=== PATIENT | female | born 1960 | race Caucasian/White ===

== ENCOUNTER 2022-09-23 19:47 | Emergency (ER) | payer BC, SELFPAY ==
[2022-09-23 19:48] VITALS: BP 113/85; PULSE 100; RESP 16; TEMP 36.3; O2SAT 100; BMI 21.5
--- NOTE | 2022-09-23 20:11 | EDS_ITS ---
HPI History of Present Illness Chief Complaint: Abd Pain Detail of Chief Complaint: Abdominal pain, vomiting Informant: patient Narrative Narrative: Patient presents secondary to abdominal pain and vomiting. She is a history of Crohn's disease and has had prior bowel obstruction. She states she gets intermittent abdominal pain with vomiting. She lives in the [facility] but was here visiting her brother when symptoms started tonight. She is had vomiting for the last hour and a half. She took 2 Zofran without improvement in her symptoms. Patient does state that on a CT scan in July her pancreatic duct was noted to be dilated to 8 mm. She scheduled to see a specialist at [facility] on Sunday. [facility] Medical History Crohn disease Pancreatic duct dilated SBO (small bowel obstruction) Allergy/AdvReac Type Severity Reaction Status Date / Time sulfamethoxazole Allergy Hives Verified 09/23/22 19:48 [From Bactrim] trimethoprim [From Bactrim] Allergy Hives Verified 09/23/22 19:48 Social History Smoking Status: Former smoker ROS ROS ED Constitutional Constitutional ED: Denies chills or fever(s) Eyes Eyes: Denies change in vision or discharge from eye(s) ENT ENT ED: Denies discharge from eye(s), rhinorrhea or sore throat Cardiovascular Cardiovascular: Denies chest pain or palpitations Respiratory/Chest Respiratory/Chest: Denies cough or dyspnea Gastrointestinal Gastrointestinal: Reports abdominal pain, nausea and vomiting; Denies diarrhea Genitourinary Genitourinary ED: Denies dysuria Musculoskeletal Musculoskeletal: Denies back pain or extremity pain Integumentary Denies Abrasions or rash Neurologic Neurologic: Denies headache(s) or weakness Psychiatric Psychiatric: Denies anxiety or depression Allergic/Immunologic Allergic/Immunologic ED: Denies lip swelling or urticaria EXAM Physical Exam Const Vital Signs: 09/23/22 19:48 Temperature 97.3 F L Temperature Source Temporal Pulse Rate 100 Respiratory Rate 16 Blood Pressure 113/85 H Blood Pressure Mean 94 Pulse Ox 100 Positive well nourished and well developed General Appearance ED: well developed HEENT Reports normocephalic and head/scalp atraumatic Eyes PERRL and EOMs intact bilaterally Neck supple Chest Wall inspection of chest normal and palpation of chest normal Resp normal respiratory effort and clear to auscultation bilaterally Cardio regular rate and regular rhythm GI GI Narrative: Abdomen soft with very hypoactive bowel sounds. No guarding or rebound at this time. Palpation: soft Extremity normal to inspection Neuro oriented x3 and no sensory deficits noted Sensorium / Orientation: alert Motor Exam: strength 5/5 throughout Psych mental status grossly normal Skin no rashes or lesions noted MDM MDM MDM Narrative Medical decision making narrative: Patient had Zofran at home without improvement in her nausea. She is given Phenergan here along with a dose of morphine and IV fluids. Labwork obtained to evaluate for leukocytosis, anemia, and electrolyte derangement. CT scan of the abdomen pelvis with IV contrast obtained given patient's prior surgical history and bowel obstructions. Lab Data Attestation: I reviewed the patient's lab results. Labs: Laboratory Results - last 24 hr 09/23/22 09/23/22 20:20 20:20 WBC 14.0 H RBC 4.69 Hgb 13.9 Hct 42.4 MCV 90.4 MCH 29.6 MCHC 32.8 RDW Std Deviation 44.3 H RDW Coeff of Patti 13.3 Plt Count 215 MPV 11.4 Immature Gran % (Auto) 0.400 Neut % (Auto) 89.6 H Lymph % (Auto) 6.9 L [place] % (Auto) 2.4 Eos % (Auto) 0.3 Baso % (Auto) 0.4 Absolute Neuts (auto) 12.6 H Absolute Lymphs (auto) 0.96 Nucleated RBC % 0 Sodium 140 Potassium 3.9 Chloride 107 Carbon Dioxide 27.0 Anion Gap 6 BUN 16 Creatinine 0.90 Estim Creat Clear Calc 59.81 Est GFR (MDRD) Af Amer 82 Est GFR (MDRD) Non-Af 68 BUN/Creatinine Ratio 17.8 Glucose 134 H Calcium 9.7 Total Bilirubin 0.40 Direct Bilirubin 0.12 AST 20 ALT 25 Alkaline Phosphatase 59 Total Protein 7.3 Albumin 3.6 Globulin 3.7 Lipase 26 Radiography Diagnostic Testing: Clinical Impression(s) from Imaging Studies Abdomen/Pelvis CT 09/23/22 21:00 IMPRESSION: Small bowel obstruction with transition point at right mid abdominal anastomosis. Small hiatal hernia with fluid in somewhat patulous distal esophagus raising concern for aspiration risk. Electronically Signed: Kulwinder Wiggins MD at 21:56 EDT , Treatment and Re-Evaluation :: CBC was a white count of 14.0 with 89% neutrophils. Hemoglobin normal at 13.9. Chemistry studies unremarkable. LFTs are normal. Glucose is 134. CT scan of the abdomen pelvis with IV contrast reveals a small bowel obstruction with transition point at the right mid abdominal anastomosis. She is a small hiatal hernia with fluid raising concern for aspiration risk. Test results are discussed with the patient and her family at bedside. She would like to go back to [facility] where her physicians are located. We spoke with the transfer line at [place]. They state that they will take her in transfer but she will currently be on a wait list for a bed. Patient is asking for something to drink. I advised her that we could not let her taking thing by mouth at this time and we discussed potential NG tube placement. She has not had any further vomiting here and states that she has never had to have an NG tube with her prior bowel obstructions. Given that she is not vomiting this time we will hold off at this time Discharge Plan Triage Chief Complaint: Abd Pain ED Provider: Sonya Pina Dx/Rx/DC Orders Clinical Impression: Small bowel obstruction Primary Care Provider: YODIT BHARDWAJ Referrals: NOT,DEFINED [Non-Staff] - Disposition Disposition: Acute Care Hospital Discharge Location: [facility]
[2022-09-23] MEDS: proMETHazine 25 MG/ML Syringe 12.5 MG IM (20:22)
[2022-09-23] MEDS: 0.9% Normal Saline 1,000 ML 150 ML IV (20:22)
[2022-09-23] MEDS: Morphine 4 MG/ML Syringe IV (20:22)
[2022-09-23 20:26] LABS: Absolute Lymphocyte Count 0.96 X10^3/uL (0.83-4.51); Absolute Neutrophil Count 12.6 X10^3/uL (2.0-7.7); Basophil# 0.05 X10^3/uL; Basophil% 0.4 % (0-1); Eosinophil# 0.04 X10^3/uL; Eosinophils% 0.3 % (0-5); Hematocrit 42.4 % (37-47); Hemoglobin 13.9 g/dL (12.0-15.0); Lymphocyte # 0.96 X10^3/ul (0.83-4.51); Lymphocyte % 6.9 % (19-41); Mean Corp Hgb Conc 32.8 g/dL (32-36); Mean Corpuscular Hgb 29.6 pg (27.0-32.0); Mean Corpuscular Volume 90.4 fL (81-99); Mean Platelet Vol. 11.4 fl (6.2-12.0); Monocyte# 0.34 X10^3/uL; Monocyte% 2.4 % (0-10); NRBC Flagged by Analyzer 0 % (0-5); Neutrophil # 12.57 X10^3/uL (2.7-7.7); Neutrophil % 89.6 % (47-70); Platelet Count 215 K/mm3 (150-450); RBC Distribution Width CV 13.3 % (11.6-14.6); RBC Distribution Width SD 44.3 fl (35.1-43.9); Red Blood Count 4.69 M/mm3 (4.2-5.4)
[2022-09-23 20:41] LABS: AST(SGOT) 20 U/L (15-37); Alanine Aminotransfer ALT/SGPT 25 U/L (13-56); Albumin, Serum 3.6 g/dL (3.2-5.0); Alkaline Phosphatase 59 U/L (45-117); Anion Gap 6 (5-15); BUN 16 mg/dL (7-18); BUN/Creat Ratio 17.8 RATIO (10-20); Bilirubin, Direct 0.12 mg/dL (0.00-0.30); Calcium,Total 9.7 mg/dL (8.5-10.1); Chloride 107 mmol/L (98-107); EST Glomerular Filtration Rate 68 mL/min (>60); Est Glom Filt Rate - Afr Amer 82 mL/min (>60); Estimated Creatinine Clearance 59.81 ml/min; Globulin 3.7 g/dL (2.2-4.2); Glucose 134 mg/dL (74-106); Lipase 26 U/L (13-75); Potassium 3.9 mmol/L (3.5-5.1); Protein, Total 7.3 g/dL (6.4-8.2); Sodium Level 140 mmol/L (136-145)
--- NOTE | 2022-09-23 21:00 | CT_ITS ---
We are attempting to reach an attending provider to discuss findings. An addendum with communication details will be sent when the communication is complete. INDICATION: ABD PAIN/NAUSEA A radiation dose optimization technique was used for this scan. Radiation CTDIvol 12.20 Radiation DLP 407.46 COMPARISON: None. IV Contrast dosage and agent: 96 cc [id number] IV. FINDINGS: Contrast-enhanced serial CT axial images through the abdomen and pelvis with coronal and sagittal reformatted series. PANCREAS: No peripancreatic fat stranding. BOWEL/MESENTERY: Multiple dilated small bowel loops containing air-fluid levels and fecalization of contents extending to right midabdominal anastomosis transition point, consistent with small bowel obstruction. Associated adjacent mesenteric edema and streaky fluid. No significant free fluid. No free air. Colonic diverticulosis without focus of diverticulitis. Partial right colectomy. Appendix is absent. GALLBLADDER: No pericholecystic fat stranding. LIVER/STOMACH: Small hiatal hernia with fluid in somewhat patulous distal esophagus raising concern for aspiration risk. URINARY COLLECTING SYSTEM/ KIDNEYS: No obstructing ureteral calculus. No significant renal parenchymal abnormality. ABDOMINAL/CHEST WALL: Bilateral breast implants, only partially imaged, although appear intact. LUNG BASES: Unremarkable. BONES: Unremarkable for age. CT/Abdomen/Pelvis W IV Cont ONLY IMPRESSION: Small bowel obstruction with transition point at right mid abdominal anastomosis. Small hiatal hernia with fluid in somewhat patulous distal esophagus raising concern for aspiration risk. Electronically Signed: Kulwinder Wiggins MD at 21:56 EDT ,
--- NOTE | 2022-09-23 22:38 | ED.RN ---
Called [facility] transfer line to begin transfer process. They state they do not have beds but will put patient on the waitlist.
--- NOTE | 2022-09-23 23:42 | ED.RN ---
called [facility] transfer line for update on patients transfer status. Spoke with Janice she states they wont have a bed until morning, patient remains wait-listed but not accepted. There will not be a doc to doc call until after there is a bed.
[2022-09-24 04:00] VITALS: RESP 16
--- NOTE | 2022-09-24 04:00 | RAD_ITS ---
INDICATION: obstruction following -- upright film COMPARISON: 09/23/[address] FINDINGS: Single frontal view of the abdomen. Scattered air-fluid levels within nondilated bowel loops consistent with ileus versus bowel obstruction. Right lower quadrant bowel sutures. No obvious free air. No definite suspicious calcifications. No mass appreciated. RAD/Abdomen Single View IMPRESSION: Scattered air-fluid levels within nondilated bowel loops consistent with ileus versus bowel obstruction. Electronically Signed: Kulwinder Wiggins MD at 4:57 EDT ,
[2022-09-24 06:00] VITALS: BP 95/45; PULSE 85; RESP 18; O2SAT 95
[2022-09-24 07:52] VITALS: BP 105/53; PULSE 77; RESP 16; O2SAT 98
== END 2022-09-24 07:55 | disposition home or self-care (01) ==
PROVIDERS: Emergency Provider Emergency Medicine; Visit Provider Emergency Medicine
DX: K56.609 Unspecified intestinal obstruction, unspecified as to partial versus complete obstruction (principal); Z87.891 Personal history of nicotine dependence
CPT/HCPCS: 74018; 74177; 80048; 80076; 83690; 85025; 96372; 96374; 99283; J7030; Q9967; A4216